=== PATIENT | male | born 1995 | race Two or more races ===

== ENCOUNTER 2024-12-15 17:50 | Emergency (ER) | payer SELFPAY | END 2024-12-15 19:29 | disposition home or self-care (01) | LOC: MW.ED 17:50 | DX: S52.122A Displaced fracture of head of left radius, initial encounter for closed fracture (principal); Z75.3 Unavailability and inaccessibility of health-care facilities; W11.XXXA Fall on and from ladder, initial encounter | CPT/HCPCS: 29065; 73080-26-LT; 73080-LT; 99282; 99283-25 ==